=== PATIENT | female | born 1985 | race Two or more races ===

== ENCOUNTER 2017-08-07 22:29 | Emergency (ER) | payer SELFPAY ==
[2017-08-07 22:36] VITALS: BP 111/63; PULSE 102; RESP 18; TEMP 97.8; O2SAT 99
[2017-08-07] MEDS ORDERED: Lidocaine 2% w Epi 1:100,000 Inj IJ ONE (23:00)
[2017-08-07] MEDS ORDERED: Lidocaine 2% w Epi 1:200,000 Pf Inj IJ ONE (23:01)
--- NOTE | 2017-08-07 23:07 | ED PDOC ---
HPI: Psych/Substance Abuse Time Seen by Provider: 08/07/17 22:44 Chief Complaint (Nursing): Psychiatric Evaluation Chief Complaint (Provider): crisis eval History Per: Patient, EMS History/Exam Limitations: no limitations Suicide/Self Injury Attempted (Context): Cut Wrists Additional History Per: Patient, EMS Additional Complaint(s): 32 y/o female history of anxiety (on lexapro) brought in by EMS for crisis eval. Patient crying, states she cut her left forearm with a razor blade because she "couldn't take the emotional pain". States this si the first time she has done something like this. Denies suicidal/homicidal ideations, hallucinations. Tetanus vaccine up to date. Patient refusing to change in to gown or answer further questions until laceration addressed. Against Medical Advice - AMA Patient Left Against Medical Advice: The patient declines admission to the hospital and wishes to leave the Emergency Department. This action is against my medical advice. This decision was made with informed refusal. The patient was told that admission to the hospital is necessary. Explanation of the reasons why were discussed. The risks of leaving were explained to the patient and include, but are not limited to, worsening of known or currently unknown conditions, permanent disability and from undiagnosed or untreated conditions. The patient has the capacity to make this informed decision and understands my explanation of the current medical problem and risks of leaving. The patient voluntarily accepts these risks and signed an AMA form documenting our conversation. The patient was given the opportunity to ask questions and reconsider. The patient was encouraged to return to the Emergency Department at any time for further care. Past Medical History Reviewed: Historical Data, Nursing Documentation, Vital Signs Vital Signs: Last Vital Signs Temp 97.8 F 08/07/17 22:32 Pulse 102 H 08/07/17 22:32 Resp 18 08/07/17 22:32 BP 111/63 08/07/17 22:32 Pulse Ox 99 08/07/17 22:32 - Medical History PMH: Anxiety - Surgical History Surgical History: No Surg Hx - Family History Family History: States: No Known Family Hx - Home Medications Home Medications: Ambulatory Orders Medication Instructions Recorded Escitalopram [Lexapro] 10 mg PO DAILY 08/07/17 - Allergies Allergies/Adverse Reactions: Allergies Allergy/AdvReac Type Severity Reaction Status Date / Time No Known Allergies Allergy Verified 10/17/17 22:31 Review of Systems ROS Statement: Except As Marked, All Systems Reviewed And Found Negative Musculoskeletal: Positive for: Arm Pain (left forearm laceration) Physical Exam - Reviewed Nursing Documentation Reviewed: Yes Vital Signs Reviewed: Yes - Physical Exam Appears: Positive for: Well, Non-toxic, Uncomfortable (crying) Head Exam: Positive for: ATRAUMATIC, NORMAL INSPECTION, NORMOCEPHALIC Skin: Positive for: Normal Color Eye Exam: Positive for: Normal appearance ENT: Positive for: Normal ENT Inspection Cardiovascular/Chest: Positive for: Regular Rate, Rhythm Respiratory: Positive for: Normal Breath Sounds Pulses-Radial (L): 2+ Pulses-Radial (R): 2+ Gastrointestinal/Abdominal: Positive for: Normal Exam Extremity: Positive for: Normal ROM, Capillary Refill (<2sec b/l UE), Other ( 4cm laceration volar left forearm. Abrasion noted distal to laceration. Distal NV, motor intact) Neurologic/Psych: Positive for: Alert, Oriented - ECG O2 Sat by Pulse Oximetry: 99 - Progress ED Course And Treament: Verbal consent given by patient for lac repair. Laceration irrigated with 250mL normal saline Patient states she wants to close the wound using steristrips/tissue glue only. Patient educated that middle of wound would heal better with sutures; patient agreeable. Center of wound anesthesized with 2%lido with epi. 2 size 4'0 nylon sutures used to closed wound; Dermabond/steristrips applied to edges. Wound bandaged. After lac repair patient attempting to leave ED with . Patient stopped by security; becoming agitated, becoming aggressive. Patient refusing to go back in to room Patient refusing to cooperate despite alternative options offered; patient escorted back to room by security, medicated for acute agitation/safety 1:15 Patient evaluated by stock worker and deliverer; does not meet criteria for admission at this time as per Dr. Olea. Patient remains awake, alert; states she would now like to leave. Patient was advised to stay in ED for observation on weight loss counselor after Haldol, Ativan injections given; states she does not wish to stay. Patient advised she will need to sign out against medical advice, and explained the risks of doing so. Patient awake, alert, oriented x3; demonstrates full competency in making medical decisions. at bedside, states he will be taking her home and assuming "all care" for her. Advised suture removal 7-8 days. Follow up PMD 2-3 days. Return to ED for worsening/concerning symptoms. Disposition - Clinical Impression Clinical Impression: Forearm laceration, Left against medical advice, Depression - Patient ED Disposition Is Patient to be Admitted: No Counseled Patient/Family Regarding: Diagnosis, Need For Followup - Disposition Disposition: Against Medical Advice Disposition Time: 01:22 Condition: STABLE Additional Instructions: Suture removal in 7-8 days. Apply neosporin to sutures daily. Return to ED for worsening/concerning symptoms. Instructions: Care For Your Stitches (ED), Laceration (ED), Depression (ED), Skin Adhesive Care (ED), Against Medical Advice (ED)
== END 2017-08-08 01:30 | disposition left against medical advice (07) ==
LOC: H.ER 22:29
DX: S51.812A Laceration without foreign body of left forearm, initial encounter (principal); F32.9 Major depressive disorder, single episode, unspecified; Z00.8 Encounter for other general examination; Z53.20 Procedure and treatment not carried out because of patient's decision for unspecified reasons
CPT/HCPCS: 12001; 96372; 99283; J1630; J2060

== ENCOUNTER 2018-04-27 08:32 | Emergency (ER) | payer MEDICAID ==
[2018-04-27 08:45] VITALS: RESP 16; TEMP 98.3; O2SAT 100; BMI 22.8
--- NOTE | 2018-04-27 09:25 | CT ---
PROCEDURE: CT HEAD WITHOUT CONTRAST. HISTORY: left facial numbness since last night COMPARISON: None available. TECHNIQUE: Axial computed tomography images were obtained through the head/brain without intravenous contrast. Radiation dose: Total exam DLP = 778.5 mGy-cm. This CT exam was performed using one or more of the following dose reduction techniques: Automated exposure control, adjustment of the mA and/or kV according to patient size, and/or use of iterative reconstruction technique. FINDINGS: HEMORRHAGE: No intracranial hemorrhage. BRAIN: No mass effect or edema. No atrophy or chronic microvascular ischemic changes. VENTRICLES: Unremarkable. No hydrocephalus. CALVARIUM: Unremarkable. PARANASAL SINUSES: Unremarkable as visualized. No significant inflammatory changes. MASTOID AIR CELLS: Unremarkable as visualized. No inflammatory changes. OTHER FINDINGS: None. IMPRESSION: No acute intracranial pathology.
--- NOTE | 2018-04-27 09:28 | ED PDOC ---
HPI: General Adult Time Seen by Provider: 04/27/18 08:44 Chief Complaint (Nursing): Weakness/Neurological Deficit History Per: Patient History/Exam Limitations: no limitations Onset/Duration Of Symptoms: Days (x since last night) Additional Complaint(s): 32-year-old female presents to ED complaining of swelling of the left side of her face and numbness, onset last night. Pt states she noticed a little bit of numbness/swelling in the left infraorbital area that started last night. Pt also noticed hives all over the body yesterday. Pt reports hives resolved, but swelling in the left face persistent. (-) speech problems, (-) vision problems, (-) headache, (+) numbness. Pt states she decided to wait it out to see if symptoms go away. Pt reports she woke up and still had numbness in left side of the face. Pt states an insect bite may have caused her hives, but is not sure. Pt is on bupropion. Denies use of control medicine. LMP April 07. PMD: Kavita Christina Past Medical History Reviewed: Historical Data, Nursing Documentation, Vital Signs Vital Signs: Last Vital Signs Temp 98.3 F 04/27/18 08:44 Pulse 85 04/27/18 08:44 Resp 16 04/27/18 08:44 BP 127/70 04/27/18 08:44 Pulse Ox 100 04/27/18 10:25 - Medical History PMH: Anxiety Denies: Diabetes, Hepatitis, HIV, HTN, Seizures, Sexually Transmitted Disease - Surgical History Surgical History: No Surg Hx - Family History Family History: States: Stroke Other Family History: (+) Brain tumors in grandparents (in their 70s), (-) history of blood clots - Social History Current smoker - smoking cessation education provided: No Alcohol: None - Immunization History Hx Tetanus Toxoid Vaccination: No Hx Influenza Vaccination: No Hx Pneumococcal Vaccination: No - Home Medications Home Medications: Ambulatory Orders Medication Instructions Recorded Escitalopram [Lexapro] 10 mg PO DAILY 08/07/17 Escitalopram [Lexapro] 10 mg PO DAILY #30 tab 01/21/18 Nitrofurantoin Macrocrystals 100 mg PO Q12H #4 cap 01/21/18 [Macrobid] traZODone [Desyrel] 100 mg PO HS PRN #30 tab 01/21/18 - Allergies Allergies/Adverse Reactions: Allergies Allergy/AdvReac Type Severity Reaction Status Date / Time No Known Allergies Allergy Verified 04/27/18 08:49 Review of Systems ROS Statement: Except As Marked, All Systems Reviewed And Found Negative Eyes: Negative for: Vision Change Skin: Positive for: Other (swelling of left side of face) Neurological: Positive for: Numbness (left side of face). Negative for: Other ( speech problems) Physical Exam - Reviewed Nursing Documentation Reviewed: Yes Vital Signs Reviewed: Yes - Physical Exam Appears: Negative for: Well ((+) Appear slightly anxious) Head Exam: Positive for: ATRAUMATIC, NORMOCEPHALIC. Negative for: NORMAL INSPECTION ((+) Numbness on left side of face) Skin: Positive for: Normal Color, Warm, Dry Eye Exam: Positive for: Normal appearance, EOMI, PERRL. Negative for: Other ( diplopia) ENT: Positive for: Normal ENT Inspection Neck: Positive for: Supple Cardiovascular/Chest: Positive for: Regular Rate, Rhythm Respiratory: Positive for: Normal Breath Sounds (Lungs clear). Negative for: Respiratory Distress Gastrointestinal/Abdominal: Positive for: Normal Exam Back: Positive for: Normal Inspection Extremity: Positive for: Normal ROM. Negative for: Deformity Neurologic/Psych: Positive for: Alert, Oriented (X 3), Motor/Sensory Deficits ( decreased sensation left face; mild facial weakness of the left face), Cerebellar Tests (Motor strengths +5/5 in upper and lower extremities), Other (( +) Speech is clear, (-) slurring, (-) peripheral sensory deficits) - Laboratory Results Result Diagrams: 04/27/18 09:01 04/27/18 09:01 - ECG O2 Sat by Pulse Oximetry: 100 (RA) Pulse Ox Interpretation: Normal Medical Decision Making Medical Decision Making: Time: 08:53 Impression(s): Numbness Differentials include, but not limited to: [place] Palsy Plan: - CT Head w/o Contrast - CMP - ED Urine Prengancy - ED Urine Dipstick - CBC (with differential) - Erythrocyte Sedimentation Rate - Partial Thromboplastin Time - Glucose, Blood, POC POC Glucose Reveals 91 mg/dL [within range] Time: 09:23 CT Head w/o Contrast FINDINGS: HEMORRHAGE: No intracranial hemorrhage. BRAIN: No mass effect or edema. No atrophy or chronic microvascular ischemic changes. VENTRICLES: Unremarkable. No hydrocephalus. CALVARIUM: Unremarkable. PARANASAL SINUSES: Unremarkable as visualized. No significant inflammatory changes. MASTOID AIR CELLS: Unremarkable as visualized. No inflammatory changes. OTHER FINDINGS: None. IMPRESSION: No acute intracranial pathology. Scribe Attestation: Documented by Waylon Emerson, acting as a scribe for Kathrin Meyer MD. Provider Scribe Attestation: All medical record entries made by the Scribe were at my direction and personally dictated by me. I have reviewed the chart and agree that the record accurately reflects my personal performance of the history, physical exam, medical decision making, and the department course for this patient. I have also personally directed, reviewed, and agree with the discharge instructions and disposition. Disposition - Clinical Impression Clinical Impression: [place] palsy - Patient ED Disposition Is Patient to be Admitted: No Doctor Will See Patient In The: Office Counseled Patient/Family Regarding: Diagnosis, Need For Followup - Disposition Referrals: Vincent Llanos [Outside] Disposition: Routine/Home Disposition Time: 10:20 Condition: STABLE Instructions: [place]'s Palsy Forms: [employer] (Hebrew) - POA Present On Arrival: None
[2018-04-27 09:32] LABS: BASO % 0.5 % (0.0-2.0); EOS # 0.1 K/uL (0.0-0.7); EOS % 2.1 % (0.0-4.0); HEMOGLOBIN 12.2 g/dL (12.0-16.0); LYMPH # 2.3 K/uL (1.0-4.3); LYMPH % 35.5 % (20.0-40.0); MEAN CELL VOLUME 85.8 fl (81.0-99.0); MEAN CORPUSCULAR HEMOGLOBIN 29.2 pg (27.0-31.0); MEAN CORPUSCULAR HGB CONC 34.1 g/dL (33.0-37.0); MEAN PLATELET VOLUME 8.8 fl (7.2-11.7); MONO # 0.7 K/uL (0.0-0.8); MONO % 10.6 % (0.0-10.0); NEUT # 3.3 K/uL (1.8-7.0); NEUT % 51.3 % (50.0-75.0); NRBC % 0.1 % (0.0-0.0); RBC 4.18 Mil/uL (3.80-5.20); RED CELL DISTRIBUTION WIDTH 14.3 % (11.5-14.5); WHITE BLOOD COUNT 6.5 K/uL (4.8-10.8)
[2018-04-27 09:51] LABS: ALB/GLOB RATIO 1.6 (1.0-2.1); ALBUMIN 4.7 g/dL (3.5-5.0); ALT/SGPT 28 U/L (9-52); AST/SGOT 19 U/L (14-36); BLOOD UREA NITROGEN 8 mg/dl (7-17); CALCIUM 9.4 mg/dL (8.4-10.2); GFR AFRICAN-AMERICAN > 60; GFR NON-AFRICAN AMERICAN > 60
[2018-04-27 10:20] LABS: PROTHROMBIN TIME 11.5 Seconds (9.8-13.1)
[2018-04-27 10:21] LABS: PARTIAL THROMBOPLASTIN TIME 31.7 Seconds (25.6-37.1)
[2018-04-27 11:13] VITALS: BP 115/80; PULSE 75
== END 2018-04-27 11:13 | disposition home or self-care (01) ==
LOC: H.ER 08:32
DX: G51.0 Bell's palsy (principal)